=== PATIENT | female | born 1980 ===

== ENCOUNTER 2021-11-10 15:42 | Emergency (ER) | payer SELFPAY ==
[2021-11-10] MEDS ORDERED: Metoclopramide HCl 10 MG TAB ONE (17:59)
[2021-11-10] MEDS ORDERED: Ketorolac Tromethamine 30 MG/ML VIAL ONE (17:59)
== END 2021-11-10 18:12 | disposition home or self-care (01) ==
LOC: ERS 15:42
DX: G43.909 Migraine, unspecified, not intractable, without status migrainosus (principal)
CPT/HCPCS: 96372; 99283; J1885